=== PATIENT | male | born 1950 | race Caucasian/White ===

== ENCOUNTER 2016-08-20 07:23 | Emergency (ER) | payer MEDICARE ==
--- NOTE | 2016-08-20 07:45 | EDM.PDOC ---
ED HPI GENERAL MEDICAL PROBLEM - General Chief Complaint: Lower Extremity Injury/Pain Stated Complaint: HURT KNEE WHILE SWIMMING Time Seen by Provider: 08/20/16 07:25 Source of Information: Reports: Patient History Limitations: Reports: No Limitations - History of Present Illness INITIAL COMMENTS - FREE TEXT/NARRATIVE: slipped running with and left knee injury. Knee cap changed and now having pain just above knee cap area. Unable to bear weight. No other injuries, no previous knee problems Onset: Today Location: Reports: Lower Extremity, Left Quality: Reports: Dull Severity: Mild Worsens with: Reports: Movement Associated Symptoms: Reports: No Other Symptoms Left Knee Pain Score (Numeric/FACES): 2 - Related Data Allergies Allergy/AdvReac Type Severity Reaction Status Date / Time No Known Allergies Allergy Verified 08/20/16 07:25 Home Meds: Home Meds Acetaminophen/HYDROcodone [[place] 325-5 MG] 1 - 2 tab PO Q6H PRN #30 tab [Rx] Gabapentin [Neurontin] 600 mg PO DAILY 08/20/16 [History] Meloxicam 15 mg PO DAILY 08/20/16 [History] Past Medical History Musculoskeletal History: Reports: Arthritis - Past Surgical History HEENT Surgical History: Reports: Adenoidectomy Other Musculoskeletal Surgeries/Procedures:: back surgery Social & Family History - Tobacco Use Smoking Status *Q: Never Smoker - Recreational Drug Use Recreational Drug Use: No Review of Systems - Review of Systems Review Of Systems: ROS reveals no pertinent complaints other than HPI. ED EXAM, GENERAL - Physical Exam Exam: See Below Exam Limited By: No Limitations General Appearance: Alert, No Apparent Distress Respiratory/Chest: No Respiratory Distress Extremities: Other (left knee with deformity of tendon above left patella. Possible disruption. No bony tenderness. lateral and medial compartments were negative. Unable to pick leg up and extend lower leg) Neurological: Alert, Oriented, Normal Cognition Psychiatric: Normal Affect, Normal Mood Skin Exam: Warm, Dry, No Rash Course - Vital Signs Last Recorded V/S: Last Vital Signs Temp 35.2 C 08/20/16 07:29 Pulse 40 L 08/20/16 08:15 Resp 18 08/20/16 07:29 BP 96/53 L 08/20/16 08:15 Pulse Ox 100 08/20/16 08:15 - Orders/Labs/Meds Orders: Active Orders 24 hr Category Date Time Status Peripheral IV Care [RC] . DIRECTED Care 08/20/16 08:18 Active Sodium Chloride 0.9% [Normal Saline] 1,000 ml Med 08/20/16 08:15 Active IV ASDIRECTED Sodium Chloride 0.9% [Saline Flush] Med 08/20/16 08:15 Active 10 ml FLUSH ASDIRECTED PRN DME for Discharge [COMM] Urgent Oth 08/20/16 10:59 Ordered Peripheral IV Insertion Adult [OM.PC] Urgent Oth 08/20/16 08:16 Ordered Medication Orders Sodium Chloride (Normal Saline) 1,000 mls @ 125 mls/hr IV ASDIRECTED [place] Sodium Chloride (Saline Flush) 10 ml FLUSH ASDIRECTED PRN PRN Reason: Keep Vein Open Last Admin: 08/20/16 08:22 Dose: 10 ml Meds: Medications Generic Name Dose Route Start Last Admin Trade Name Freq PRN Reason Stop Dose Admin Sodium Chloride 1,000 mls @ 125 mls/hr 08/20/16 08:15 Normal Saline IV ASDIRECTED [place] Sodium Chloride 10 ml 08/20/16 08:15 08/20/16 08:22 Saline Flush FLUSH 10 ml ASDIRECTED PRN Administration Keep Vein Open Discontinued Medications Generic Name Dose Route Start Last Admin Trade Name Freq PRN Reason Stop Dose Admin Sodium Chloride 1,000 mls @ 999 mls/hr 08/20/16 08:20 08/20/16 08:24 Normal Saline IV 08/20/16 09:20 999 mls/hr .BOLUS ONE Administration Ondansetron HCl 4 mg 08/20/16 08:15 08/20/16 08:22 Zofran IVPUSH 08/20/16 08:16 4 mg ONETIME ONE Administration - Radiology Interpretation Free Text/Narrative:: MRI of left knee done with radiology saying that there is a complete disruption of quadriceps tendon above the patella, with a 8 mm retraction. Also a small oblique tear of medial meniscus and a ruptured Bakers cyst - Re-Assessments/Exams Free Text/Narrative Re-Assessment/Exam: 08/20/16 10:56 Reviewed MRI results with the patient. A called placed to ortho, Dr. Hines, who stated he would stop down to discuss next steps Departure - Departure Time of Disposition: 11:19 Disposition: Home, Self-Care 01 Condition: Good Clinical Impression: Quadriceps tendon rupture - Discharge Information Prescriptions: Acetaminophen/HYDROcodone [[place] 325-5 MG] 1 - 2 tab PO Q6H PRN #30 tab PRN Reason: Pain Instructions: Knee Immobilizer, [id number] Referrals: PCP,None [Primary Care Provider] - Forms: ED Department Discharge - Problem List & Annotations (1) Quadriceps tendon rupture SNOMED Code(s): 5462714 Code(s): S76.119A - STRAIN OF UNSP QUADRICEPS MUSCLE, FASCIA AND TENDON, INIT Status: Acute Priority: High Current Visit: Yes Qualifiers: Encounter type: initial encounter Laterality: left Qualified Code(s): S76.112A - Strain of left quadriceps muscle, fascia and tendon, initial encounter - Problem List Review Problem List Initiated/Reviewed/Updated: Yes - My Orders Last 24 Hours: My Active Orders 08/20/16 08:15 Sodium Chloride 0.9% [Normal Saline] 1,000 ml IV ASDIRECTED Sodium Chloride 0.9% [Saline Flush] 10 ml FLUSH ASDIRECTED PRN 08/20/16 08:16 Peripheral IV Insertion Adult [OM.PC] Urgent 08/20/16 08:18 Peripheral IV Care [RC] . DIRECTED 08/20/16 10:59 DME for Discharge [COMM] Urgent - Assessment/Plan Last 24 Hours: My Active Orders 08/20/16 08:15 Sodium Chloride 0.9% [Normal Saline] 1,000 ml IV ASDIRECTED Sodium Chloride 0.9% [Saline Flush] 10 ml FLUSH ASDIRECTED PRN 08/20/16 08:16 Peripheral IV Insertion Adult [OM.PC] Urgent 08/20/16 08:18 Peripheral IV Care [RC] . DIRECTED 08/20/16 10:59 DME for Discharge [COMM] Urgent Assessment:: ruptured quadriceps tendon. Has been seen by Ortho, with plans to immobilize with knee immobilizer, to use crutches. They will see him in clinic on Tuesday with planned surgery on Tuesday08/24/2016 Plan: Knee immobilizer placed, crutches ordered. will be seen in Ortho clinic on with anticipated surgery on 08/24/2016, a prescription for norco was given in the event of increased pain
[2016-08-20] MEDS ORDERED: Ondansetron 4 MG/2 ML SDV IVPUSH ONE (08:15)
[2016-08-20] MEDS ORDERED: Sodium Chloride 0.9% 1,000 ML IV SCH (08:15)
[2016-08-20] MEDS ORDERED: Sodium Chloride 0.9% 10 ML Syringe FLUSH PRN (08:15)
[2016-08-20] MEDS ORDERED: Sodium Chloride 0.9% 1,000 ML IV ONE (08:20)
[2016-08-20 08:42] VITALS: BP 96/53
--- NOTE | 2016-08-20 10:16 | MR ---
Knee wo Cont Lt INDICATION: slipped and fell with injury to left knee, COMPARISON: None. FINDINGS: Complete tear of the quadriceps tendon, just proximal to the superior pole of the patella with 8 mm of retraction. Moderate amount of surrounding fluid and edema in the soft tissues. No evid ence for acute fracture. Cruciate and collateral ligaments are intact. Lateral meniscus is intact. Small oblique tear at the junction of the body and posterior horn of the medial meniscus, best visualized on series 8 and 9, i mage 18. Mild thinning of the articular cartilage in all 3 compartments but no evidence for high-gra de chondromalacia. Partially ruptured Spaulding's cyst with fluid extending along the fascia of the medi al head of the gastrocnemius. Exam otherwise unremarkable. IMPRESSION: 1. Complete tear of the quadriceps tendon, just proximal to the superior pole of the patella with 8 mm of retraction. 2. Small oblique tear at the junction of the body and posterior horn of the medial meniscus. 3. Partially ruptured Spaulding's cyst.
== END 2016-08-20 11:32 | disposition home or self-care (01) ==
LOC: JP.ED 07:23
DX: S76.112A Strain of left quadriceps muscle, fascia and tendon, initial encounter (principal); Z79.899 Other long term (current) drug therapy; Z98.890 Other specified postprocedural states; W01.0XXA Fall on same level from slipping, tripping and stumbling without subsequent striking against object, initial encounter; Y93.02 Activity, running
CPT/HCPCS: 73721; 96361; 96374; 99284; J2405; J7040; J7050

== ENCOUNTER 2017-08-20 15:16 | Emergency (ER) | payer MEDICARE ==
[2017-08-20 16:30] VITALS: BP 144/95
--- NOTE | 2017-08-20 16:44 | EDM.PDOC ---
ED HPI GENERAL MEDICAL PROBLEM - General Chief Complaint: Bite:Animal, Insect Stated Complaint: WOOD TICK BITE ON BACK INFECTED Time Seen by Provider: 08/20/17 16:35 Source of Information: Reports: Patient History Limitations: Reports: No Limitations - History of Present Illness INITIAL COMMENTS - FREE TEXT/NARRATIVE: pt had a tick bite on the left buttock. There is a area of redness around the bite that he is concerned about. Onset: Other (he puled the tick off yesterday. ) Duration: Hour(s): Location: Reports: Lower Extremity, Left Associated Symptoms: Reports: No Other Symptoms - Related Data Allergies Allergy/AdvReac Type Severity Reaction Status Date / Time No Known Allergies Allergy Verified 08/20/16 07:25 Home Meds: Home Meds Acetaminophen/HYDROcodone [[place] 325-5 MG] 1 - 2 tab PO Q6H PRN #30 tab [Rx] Gabapentin [Neurontin] 600 mg PO DAILY 08/20/16 [History] Meloxicam 15 mg PO DAILY 08/20/16 [History] Past Medical History Musculoskeletal History: Reports: Arthritis - Past Surgical History HEENT Surgical History: Reports: Adenoidectomy Other Musculoskeletal Surgeries/Procedures:: back surgery. left quad surgery. Social & Family History - Tobacco Use Smoking Status *Q: Never Smoker - Caffeine Use Caffeine Use: Reports: Coffee - Recreational Drug Use Recreational Drug Use: No ED ROS GENERAL - Review of Systems Review Of Systems: See Below Constitutional: Reports: No Symptoms HEENT: Reports: No Symptoms Respiratory: Reports: No Symptoms Cardiovascular: Reports: No Symptoms Endocrine: Reports: No Symptoms GI/Abdominal: Reports: No Symptoms : Reports: No Symptoms Musculoskeletal: Reports: No Symptoms ED EXAM, ANIMAL BITE - Physical Exam Exam: See Below Text/Narrative:: pt h\has a tick bite on the left buttock. He d\does not have the tick but it does sound like a deer tick. Exam Limited By: No Limitations General Appearance: Alert Extremities: Other (pt has a tick bite on the left buttock. This does sound like a deer tick from the description. Ther is slight redness atround the site but not like a target lesion. ) Course - Vital Signs Last Recorded V/S: Last Vital Signs Temp 36.1 C 08/20/17 16:31 Pulse 49 L 08/20/17 16:31 Resp 16 08/20/17 16:31 BP 144/95 H 08/20/17 16:31 Pulse Ox 100 08/20/17 16:31 Departure - Departure Time of Disposition: 16:43 Disposition: Home, Self-Care 01 Condition: Fair Clinical Impression: Tick bite - Discharge Information Referrals: PCP,None [Primary Care Provider] - Forms: ED Department Discharge Care Plan Goals: doxycyline 100mg bid for 3 days, if further redness moist warm packs.
== END 2017-08-20 16:53 | disposition home or self-care (01) ==
LOC: JP.ED 15:16
DX: S30.860A Insect bite (nonvenomous) of lower back and pelvis, initial encounter (principal); W57.XXXA Bitten or stung by nonvenomous insect and other nonvenomous arthropods, initial encounter; Z79.899 Other long term (current) drug therapy
CPT/HCPCS: 99283